=== PATIENT | female | born 1945 | race Caucasian/White ===

== ENCOUNTER 2016-05-03 13:21 | Outpatient (CLI) | payer MEDICARE ==
--- OUTSIDE RECORDS SUMMARY | 2016-05-02 05:49 | XMS REPORT | Continuity of Care Document ---
Author Author [facility] Organization [facility] Address Unknown Phone Unavailable Care Team Providers Care Bench Machine Operator Name Role Phone LAURENT HOYOS MD PCP Insurance Providers Payer Name Policy Number Subscriber Name Relationship Wps Medicare [id number] [employer] 18 Self / Same As Patient Blue Cross [facility] Supp [id number] [employer] 18 Self / Same As Patient Advance Directives Directive Response Recorded Date/Time Advance Directives No 06/06/14 9:50am Organ Donor No 05/27/14 5:22pm Problems Medical Problems Problem Onset Date Status Laceration of leg, left Unknown Active Medications Medication Dose Route Sig Days/Qty Instructions Order Date Discontinued Date Status Calcium/Vitamin D 1 Each PO DAILY 11/22/11 Active [Estradiol] 05/27/14 Active Cephalexin Monohydrate (Keflex) 1 Each PO THREE TIMES A DAY 15 Qty 08/06 Active Social History Social History Problem Response Recorded Date/Time Alcohol Use Denies Use 06/06/2014 9:50am Recreational Drug Use No 06/06/2014 9:50am Recent Foreign Travel No 06/06/2014 9:44am Hospital Discharge Instructions No hospital discharge instructions. Plan of Care No plan of care. Functional Status No functional status results. Allergies, Adverse Reactions, Alerts Allergen Type Severity Reaction Status Last Updated Meperidine HCl Allergy Active 11/22/11 neomycin sulfate Allergy Active 11/22/11 Bacitracin Zinc Allergy Active 11/22/11 polymyxin B sulfate Allergy Active 11/22/11 hydrocortisone ([id number]) Allergy Active 11/22/11 neomycin ([id number]) Allergy Active 11/22/11 bacitracin (G721755531) Allergy Active 11/22/11 gramicidin D (O683282975) Allergy Active 11/22/11 benzalkonium chloride (K003256364) Allergy Active 11/22/11 Polymyxin B Allergy Active 11/22/11 Immunizations Name Given Type Date of Influenza Vaccine 12/23/13 Historical Tdap 05/27/14 Administered Vital Signs Acute Vital Signs Vital Response Date/Time Temperature (Fahrenheit) 97.9 degrees F (97.6 - 99.5) Temperature (Calculated Celsius) 36.63465 degrees C (36.4 - 37.5) Temperature Source Temporal Pulse Rate (adult) 88 bpm (60 - 90) Respiratory Rate 20 bpm (12 - 24) O2 Sat by Pulse Oximetry 99 % (88 - 100) Blood Pressure 126/88 mm Hg Pain Pain Intensity 0 Height (Feet) 4 feet Height (Inches) 11 inches Height (Calculated Centimeters) 149.523856 cm Weight (Pounds) 99 pounds Weight (Calculated Grams) 50245.645 gm Weight (Calculated Kilograms) 44.505294 kilograms Calculated BMI 19.99 Results No known relevant diagnostic tests, laboratory data and/or discharge summary. Procedures No known history of procedures. Encounters Encounter Location Date/Time Departed Emergency Room Via [facility] 06/06/14 9:46am Departed Emergency Room Via [facility] 05/27/14 5:18pm Recent Diagnosis
[~2016-05-03] VITALS: Ht 149.9 cm; Wt 48.5 kg
[~2016-05-03 13:21] MED LIST: ATOR10TA66 PO; CALC-793 PO; CEPH500C PO; CETI10CA PO; ESTR0.5T3 PO; ESTRADIOL; MELO15TA39 PO
--- OUTSIDE RECORDS SUMMARY | 2016-05-03 13:24 | XMS REPORT | Continuity of Care Document ---
Author Author [facility] Organization [facility] Address Unknown Phone Unavailable Care Team Providers Care Oil Dispatcher Name Role Phone LAURENT HOYOS MD PCP Insurance Providers Payer Name Policy Number Subscriber Name Relationship Wps Medicare [id number] Bel[employer]is Kc 18 Self / Same As Patient Blue Cross [facility] Supp [id number] [employer]c 18 Self / Same As [...] polymyxin B sulfate Allergy Active 11/22/11 hydrocortisone ([id number]) Allergy Active 11/22/11 neomycin ([id number]) Allergy Active 11/22/11 bacitracin (Q164586364) Allergy Active 11/22/11 gramicidin D (J381410995) Allergy Active 11/22/11 benzalkonium chloride (Z312983063) Allergy Active 11/22/11 Polymyxin B Allergy Active 11/22/11 Immunizations Name Given Type Date of Influenza Vaccine 12/23/13 Historical Tdap 05/27/14 Administered Vital Signs Acute Vital Signs Vital Response Date/Time Temperature (Fahrenheit) 97.9 degrees F (97.6 - 99.5) Temperature (Calculated Celsius) 36.39504 degrees C (36.4 - 37.5) Temperature Source Temporal Pulse Rate (adult) 88 bpm (60 - 90) Respiratory Rate 20 bpm (12 - 24) O2 Sat by Pulse Oximetry 99 % (88 - 100) Blood Pressure 126/88 mm Hg Pain Pain Intensity 0 Height (Feet) 4 feet Height (Inches) 11 inches Height (Calculated Centimeters) 149.666819 cm Weight (Pounds) 99 pounds Weight (Calculated Grams) 52376.645 gm Weight (Calculated Kilograms) 44.890141 kilograms Calculated BMI 19.99 Results No known relevant diagnostic tests, laboratory data and/or discharge summary. Procedures No known history of procedures. Encounters Encounter Location Date/Time Departed Emergency Room Via [facility] 06/06/14 9:46am Departed Emergency Room Via [facility] 05/27/14 5:18pm Recent Diagnosis
== END 2016-05-03 13:31 ==
LOC: PREOP 13:21
PROVIDERS: ATTEND Internal Medicine
DX: Z01.818 Encounter for other preprocedural examination (principal); Z12.11 Encounter for screening for malignant neoplasm of colon

== ENCOUNTER 2016-05-04 07:16 | Day surgery (SDC) | payer MEDICARE ==
[~2016-05-04] VITALS: Ht 149.9 cm; Wt 48.5 kg
--- OUTSIDE RECORDS SUMMARY | 2016-05-04 07:19 | XMS REPORT | Continuity of Care Document ---
Author Author [facility] Organization [facility] Address Unknown Phone Unavailable Care Team Providers Care Bookmobile Librarian Name Role Phone LAURENT HOYOS MD PCP Insurance Providers Payer Name Policy Number Subscriber Name Relationship Wps Medicare [id number] [employer]is [employer]c 18 Self / Same As Patient Blue Cross [facility] Supp [id number] Bel[employer]is [employer]c 18 Self / Same As [...] polymyxin B sulfate Allergy Active 11/22/11 hydrocortisone ([id number]) Allergy Active 11/22/11 neomycin (O897786682) Allergy Active 11/22/11 bacitracin (U472263321) Allergy Active 11/22/11 gramicidin D (A079213250) Allergy Active 11/22/11 benzalkonium chloride (W333342740) Allergy Active 11/22/11 Polymyxin B Allergy Active 11/22/11 Immunizations Name Given Type Date of Influenza Vaccine 12/23/13 Historical Tdap 05/27/14 Administered Vital Signs Acute Vital Signs Vital Response Date/Time Temperature (Fahrenheit) 97.9 degrees F (97.6 - 99.5) Temperature (Calculated Celsius) 36.54754 degrees C (36.4 - 37.5) Temperature Source Temporal Pulse Rate (adult) 88 bpm (60 - 90) Respiratory Rate 20 bpm (12 - 24) O2 Sat by Pulse Oximetry 99 % (88 - 100) Blood Pressure 126/88 mm Hg Pain Pain Intensity 0 Height (Feet) 4 feet Height (Inches) 11 inches Height (Calculated Centimeters) 149.865469 cm Weight (Pounds) 99 pounds Weight (Calculated Grams) 77298.645 gm Weight (Calculated Kilograms) 44.393969 kilograms Calculated BMI 19.99 Results No known relevant diagnostic tests, laboratory data and/or discharge summary. Procedures No known history of procedures. Encounters Encounter Location Date/Time Departed Emergency Room Via [facility] 06/06/14 9:46am Departed Emergency Room Via [facility] 05/27/14 5:18pm Recent Diagnosis
--- NOTE | 2016-05-04 07:20 | HISTORY AND PHYSICAL ---
DICTATING PHYSICIAN: Dr. Cortez DATE OF ADMISSION: 05/04/2016 Mrs. Garnica is a 70-year-old white female referred by Dr. Nolen for screening colonoscopy. She is deemed to be at higher than average risk as she has a personal past history of colon polyps and there is a family history of colon cancer. Index case was her brother who was diagnosed with colon cancer in his 70s. She also reports her mother was diagnosed with breast cancer at the age of 72. She was first noted to have a pedunculated adenomatous dysplastic 8 mm colon polyp removed from sigmoid colon in 1995, I believe her first colonoscopy. She had a repeat colonoscopy several years later that revealed no evidence for polyps and to my knowledge and hers, she has not had subsequent colonoscopy since 2005, at which time no evidence for neoplasia was noted. She reports that she has felt well. She has noted no blood in her stool. She denies bowel habit change. She does take MiraLAX on a regular albeit not daily basis for constipation. She denies any abdominal distention. There have been no medication changes and she has had no recent surgery. PAST MEDICAL HISTORY: 1. Significant for osteoarthritis. 2. History of some anxiety in the past. 3. She reports that a history of multiple sclerosis 30 years ago, but has had no flares in many years and has not required treatment. PAST SURGICAL HISTORY: 1. Significant for cholecystectomy performed in 2008. 2. She underwent hysterectomy for benign reasons in 2013. Has at least one ovary left. She has been on estrogen placement therapy. FAMILY HISTORY: As noted above. She has also had 2 aunts with breast cancer diagnosed in their 60s. 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 PHYSICAL EXAMINATION: Reveals a pleasant white female, appears to be in no acute distress. She has a normal weight of 107.8 pounds. Blood pressure 134/80. HEENT EXAMINATION: Unremarkable, oral cavity reveals a Mallampati class II configuration. Pharynx reveals no evidence for erythema. NECK: Reveals no JVD, adenopathy, bruits or thyroid abnormality to palpation. CHEST: Clear. CV: Reveals a regular rate and rhythm without murmur, S3 or S4. ABDOMEN: Soft, supple without masses, organomegaly or tenderness. EXTREMITIES: Reveal no cyanosis, clubbing, or edema. Electronic medical record was reviewed. MEDICATIONS: 1. Include: Fish oil 1 to 2 tablets daily. 2. Zyrtec 5 mg daily. 3. 81 mg aspirin daily. 4. Meloxicam 15 mg daily. 5. Cyclobenzaprine 5 mg b.i.d. 6. Estradiol 0.5 mg per vagina weekly. ASSESSMENT: The patient was set-up for screening colonoscopy on May 04. Prep instructions were given with split dose Colyte and questions were answered. Electronic medical record reviewing 40 minutes of my care time was spent with another 10 to 15 minutes of staff time in setting up colonoscopy and going over prep instructions. I thank you for the referral of this pleasant lady. Sincerely, Roger Cortez The patient was instructed to hold aspirin for one week prior to her procedure and meloxicam 48 hours prior to undergoing colonoscopy written instructions to aid in compliance. Job ID: [id number] Dictated Date: 04/26/2016 06:57:00 Program Proposals Coordinator Date: 04/26/2016 10:29:29/antonio
--- OUTSIDE RECORDS SUMMARY | 2016-05-04 07:20 | XMS REPORT | Continuity of Care Document ---
Author Author [facility] Organization [facility] Address Unknown Phone Unavailable Care Team Providers Care Feltmaker And Weigher Name Role Phone LAURENT HOYOS MD PCP Insurance Providers Payer Name Policy Number Subscriber Name Relationship Wps Medicare [id number] Bel[employer]is Kc 18 Self / Same As Patient Blue Cross [facility] Supp [id number] Bel[employer]is Kc 18 Self / Same As [...] polymyxin B sulfate Allergy Active 11/22/11 hydrocortisone ([id number]) Allergy Active 11/22/11 neomycin (I776475134) Allergy Active 11/22/11 bacitracin (N849755483) Allergy Active 11/22/11 gramicidin D (S491965207) Allergy Active 11/22/11 benzalkonium chloride (C083717389) Allergy Active 11/22/11 Polymyxin B Allergy Active 11/22/11 Immunizations Name Given Type Date of Influenza Vaccine 12/23/13 Historical Tdap 05/27/14 Administered Vital Signs Acute Vital Signs Vital Response Date/Time Temperature (Fahrenheit) 97.9 degrees F (97.6 - 99.5) Temperature (Calculated Celsius) 36.18322 degrees C (36.4 - 37.5) Temperature Source Temporal Pulse Rate (adult) 88 bpm (60 - 90) Respiratory Rate 20 bpm (12 - 24) O2 Sat by Pulse Oximetry 99 % (88 - 100) Blood Pressure 126/88 mm Hg Pain Pain Intensity 0 Height (Feet) 4 feet Height (Inches) 11 inches Height (Calculated Centimeters) 149.669967 cm Weight (Pounds) 99 pounds Weight (Calculated Grams) 43757.645 gm Weight (Calculated Kilograms) 44.070535 kilograms Calculated BMI 19.99 Results No known relevant diagnostic tests, laboratory data and/or discharge summary. Procedures No known history of procedures. Encounters Encounter Location Date/Time Departed Emergency Room Via [facility] 06/06/14 9:46am Departed Emergency Room Via [facility] 05/27/14 5:18pm Recent Diagnosis
[2016-05-04] MEDS ORDERED: 1/2 NS IV SOLUTION 1,000 ML IV STA (07:42)
[2016-05-04] MEDS ORDERED: 1/2 NS IV SOLUTION 1,000 ML IV ONE (07:44)
[2016-05-04] MEDS ORDERED: LIDOCAINE JELLY 2% (XYLOCAINE) 5 ML TUBE MM PRN (07:45)
[2016-05-04] MEDS ORDERED: FLUMAZENIL (ROMAZICON) 0.1 MG/ML 5 ML VIAL INJ PRN (07:45)
[2016-05-04] MEDS ORDERED: NALOXONE 0.4 MG/ML 1 ML (NARCAN) VIAL IVP PRN (07:45)
--- NOTE | 2016-05-04 07:56 | Pre-Op Note & Conscious Sedat ---
Pre-Operative Progress Note H&P Reviewed The H&P was reviewed, patient examined and no changes noted. Date H&P Reviewed: May 04, 2016 Time H&P Reviewed: 07:56 Conscious Sedation Pre-Proced ASA Class: 2 Airway Mallampati Classification: ([place] appropriate class) I. II. III, IV Lungs Heart ASA score ASA 1: a normal healthy patient ASA 2: a patient with a mild systemic disease (mid diabetes, controlled hypertension, obesity ASA 3: a patient with a severe systemic disease that limits activity (angina , COPD, prior Myocardial infarction) ASA 4: a patient with an incapacitating disease that is a constant threat to life (CHF, renal failure) ASA 5: a moribund patient not expected to survive 24 hrs. (ruptured aneurysm) ASA 6: a declared brain patient whose organs are being harvested. For emergent operations, add the letter E after the classification Grade 2 Sedation Plan: Analgesia, Amnesia, Plan communicated to team members, Discussed options with patient/fam, Discussed risks with patient/fam Note The patient is an appropriate candidate to undergo the planned procedure, sedation, and anesthesia. The patient immediately re-assessed prior to indication. BIANCA DEAL MD May 04, 2016 07:56
[2016-05-04 08:01] VITALS: BP 134/93
[2016-05-04] MEDS ORDERED: LIDOCAINE JELLY 2% (XYLOCAINE) 5 ML TUBE ONE (08:34)
[2016-05-04] MEDS ORDERED: fentaNYL INJECTION 100 MCG/2 ML AMP ONE ×2 (08:34→08:57)
[2016-05-04] MEDS ORDERED: MIDAZOLAM 2 MG/2 ML (VERSED) VIAL ONE ×2 (08:34)
[2016-05-04] MEDS: fentaNYL INJECTION 100 MCG/2 ML AMP IVP PRN ×4 (08:40→08:59)
[2016-05-04] MEDS: MIDAZOLAM 2 MG/2 ML (VERSED) VIAL IVP PRN ×2 (08:49→08:58)
[2016-05-04 09:45] VITALS: BP 117/72
[2016-05-04 10:04] VITALS: BP 126/66
[2016-05-04 10:57] VITALS: BP 126/66
--- NOTE | 2016-05-06 12:39 | PROCEDURE REPORT ---
PROCEDURE PHYSICIAN: BIANCA DEAL DATE OF PROCEDURE: 05/04/2016 INDICATION FOR THE PROCEDURE: Screening colonoscopy. PROCEDURE: The patient was placed in the left lateral decubitus position. Prior to undergoing colonoscopy, digital rectal evaluation was performed. Anal sphincter tone was normal and the perianal reflex was intact. The patient was concerned that she may have a hemorrhoid as she notices a prominent area. She did have a prominent perianal skin fold and there were no evidence for internal or external hemorrhoids and she was reassured. Anal sphincter tone was normal and the perianal reflex is intact. No abnormalities were noted to digital inspection of the anal canal or distal rectal vault other than an anterior rectocele. There was no evidence for pocketing of stool. The colonoscope was then inserted into the rectum and under direct visualization, advanced to cecum. The cecum was identified by identification of the ileocecal valve and cecal strap. Photographic documentation was obtained. A careful inspection was made as the colonoscope was withdrawn. The quality of prep was good. FINDINGS: There is no evidence for internal or external hemorrhoids. The rectum, sigmoid colon, descending colon, transverse colon, ascending colon and cecum were unremarkable. The patient was reassured by today's findings. As there is a positive family history for colon cancer, index case being her father diagnosed in his 70s, I would advocate consideration for repeat screening colonoscopy in 5 years if this patient's health remains good. I thank you for the referral of this pleasant lady. Sincerely, Bianca Deal MD Job ID: [id number] Dictated Date: 05/04/2016 19:23:55 Animal Cytologist Date: 05/06/2016 12:33:41 / antonio MCCLELLAN
== END 2016-05-04 10:15 | disposition home or self-care (01) ==
LOC: ENDO 07:16
PROVIDERS: ATTEND Internal Medicine
DX: Z12.11 Encounter for screening for malignant neoplasm of colon (principal); Z80.0 Family history of malignant neoplasm of digestive organs

== ENCOUNTER → 2016-05-08 | Outpatient (CLI) | payer MEDICARE ==
[~2016-05-08] VITALS: Ht 149.9 cm; Wt 45.8 kg
[~2016-05-08] MED LIST changes: +NS IV 1000 ML 1,000 ML IV SCH; +ONDANSETRON 4 MG/2 ML (SDV) Z0FRAN IVP ONE
--- OUTSIDE RECORDS SUMMARY | 2016-05-08 11:19 | XMS REPORT | Continuity of Care Document ---
Author Author [facility] Organization [facility] Address Unknown Phone Unavailable Care Team Providers Care Television Engineering Teacher Name Role Phone LAURENT HOYOS MD PCP Insurance Providers Payer Name Policy Number Subscriber Name Relationship Wps Medicare [id number] Belkis Kc 18 Self / Same As Patient Blue Cross [facility] Supp [id number] Belkis Kc 18 Self / Same As [...] polymyxin B sulfate Allergy Active 11/22/11 hydrocortisone ([id number]) Allergy Active 11/22/11 neomycin (Y807595171) Allergy Active 11/22/11 bacitracin (Y117081793) Allergy Active 11/22/11 gramicidin D (W770645593) Allergy Active 11/22/11 benzalkonium chloride (S601349679) Allergy Active 11/22/11 Polymyxin B Allergy Active 11/22/11 Immunizations Name Given Type Date of Influenza Vaccine 12/23/13 Historical Tdap 05/27/14 Administered Vital Signs Acute Vital Signs Vital Response Date/Time Temperature (Fahrenheit) 97.9 degrees F (97.6 - 99.5) Temperature (Calculated Celsius) 36.56352 degrees C (36.4 - 37.5) Temperature Source Temporal Pulse Rate (adult) 88 bpm (60 - 90) Respiratory Rate 20 bpm (12 - 24) O2 Sat by Pulse Oximetry 99 % (88 - 100) Blood Pressure 126/88 mm Hg Pain Pain Intensity 0 Height (Feet) 4 feet Height (Inches) 11 inches Height (Calculated Centimeters) 149.928327 cm Weight (Pounds) 99 pounds Weight (Calculated Grams) 77937.645 gm Weight (Calculated Kilograms) 44.477161 kilograms Calculated BMI 19.99 Results No known relevant diagnostic tests, laboratory data and/or discharge summary. Procedures No known history of procedures. Encounters Encounter Location Date/Time Departed Emergency Room Via [facility] 06/06/14 9:46am Departed Emergency Room Via [facility] 05/27/14 5:18pm Recent Diagnosis
--- NOTE | 2016-05-08 11:47 | Diagnostic Imaging Report ---
INDICATION: Vomiting. Patient is 4 days post colonoscopy. FINDINGS: There were no findings suggestive of free air in this supine radiograph. Bowel gas pattern unremarkable. No abnormal small or large bowel air/distention nor pathological fecal loading. There are clips in the subhepatic space. No suspicious calcifications. IMPRESSION: Unremarkable abdominal radiograph. Dictated by: Dictated on workstation # [id number]
[2016-05-08 12:14] LABS: MEAN PLATELET VOLUME 9.5 FL (7.4-10.4); RED BLOOD COUNT 4.64 10^6/uL (4.35-5.85); RED CELL DISTRIBUTION WIDTH 12.7 % (10.0-14.5)
[2016-05-08 12:33] LABS: ALANINE AMINOTRANSFERASE 21 U/L (0-55); ALBUMIN 4.4 G/DL (3.2-4.5); ANION GAP 14 MMOL/L (5-14); ASPARTATE AMINO TRANSFERASE 30 U/L (5-34); BILIRUBIN,TOTAL 0.8 MG/DL (0.1-1.0); BLOOD UREA NITROGEN 17 MG/DL (7-18); BUN/CREATININE RATIO 22; CALCIUM 9.3 MG/DL (8.5-10.1); CARBON DIOXIDE 22 MMOL/L (21-32); CHLORIDE 105 MMOL/L (98-107); CREATININE SERUM 0.79 MG/DL (0.60-1.30); GFR ESTIMATED > 60; GLUCOSE 97 MG/DL (70-105); POTASSIUM 3.3 MMOL/L (3.6-5.0); SODIUM 141 MMOL/L (135-145)
[2016-05-08 13:15] VITALS: BP 137/87
== END ==
LOC: SDC 11:14
PROVIDERS: ATTEND Nurse Practitioner Family
DX: E86.0 Dehydration (principal); R10.84 Generalized abdominal pain; R10.31 Right lower quadrant pain; R10.32 Left lower quadrant pain; R10.12 Left upper quadrant pain
CPT/HCPCS: 36415; 74000; 80053; 85027; 96360; 96374

== ENCOUNTER → 2016-05-08 | Outpatient (CLI) | payer MEDICARE ==
[~2016-05-08] MED LIST changes: -NS IV 1000 ML 1,000 ML IV SCH; -ONDANSETRON 4 MG/2 ML (SDV) Z0FRAN IVP ONE
--- OUTSIDE RECORDS SUMMARY | 2016-05-08 09:58 | XMS REPORT | Continuity of Care Document ---
Author Author [facility] Organization [facility] Address Unknown Phone Unavailable Care Team Providers Care Clinical Nursing Director Name Role Phone LAURENT HOYOS MD PCP Insurance Providers Payer Name Policy Number Subscriber Name Relationship Wps Medicare [id number] Belkis Kc 18 Self / Same As Patient Blue Cross [facility] Supp [id number] Belkis Kc 18 Self / Same As [...] polymyxin B sulfate Allergy Active 11/22/11 hydrocortisone ([id number]) Allergy Active 11/22/11 neomycin (W278178738) Allergy Active 11/22/11 bacitracin (L276444681) Allergy Active 11/22/11 gramicidin D (T396815175) Allergy Active 11/22/11 benzalkonium chloride (Y816189964) Allergy Active 11/22/11 Polymyxin B Allergy Active 11/22/11 Immunizations Name Given Type Date of Influenza Vaccine 12/23/13 Historical Tdap 05/27/14 Administered Vital Signs Acute Vital Signs Vital Response Date/Time Temperature (Fahrenheit) 97.9 degrees F (97.6 - 99.5) Temperature (Calculated Celsius) 36.65262 degrees C (36.4 - 37.5) Temperature Source Temporal Pulse Rate (adult) 88 bpm (60 - 90) Respiratory Rate 20 bpm (12 - 24) O2 Sat by Pulse Oximetry 99 % (88 - 100) Blood Pressure 126/88 mm Hg Pain Pain Intensity 0 Height (Feet) 4 feet Height (Inches) 11 inches Height (Calculated Centimeters) 149.983488 cm Weight (Pounds) 99 pounds Weight (Calculated Grams) 50445.645 gm Weight (Calculated Kilograms) 44.313760 kilograms Calculated BMI 19.99 Results No known relevant diagnostic tests, laboratory data and/or discharge summary. Procedures No known history of procedures. Encounters Encounter Location Date/Time Departed Emergency Room Via [facility] 06/06/14 9:46am Departed Emergency Room Via [facility] 05/27/14 5:18pm Recent Diagnosis
--- NOTE | 2016-05-08 18:25 | Diagnostic Imaging Report ---
Bilateral screening mammogram The current study was also evaluated with a Computer Aided Detection (CAD) system. INDICATION: Screening. No current complaints stated on the questionnaire. COMPARISON: 11/30/2013. FINDINGS: The breasts are composed of heterogeneously dense parenchyma which may decrease mammographic sensitivity. There are medial left breast and central right breast benign-appearing calcifications. Allowing for technique and positional differences, no suspicious change is seen. IMPRESSION: No significant change. ACR BI-RADS Category 2: Benign findings. Result letter will be mailed to the patient. Note: At least 10% of breast cancer is not imaged by mammography. Dictated by: Dictated on workstation # [id number]
== END ==
LOC: RAD 09:54
PROVIDERS: ATTEND Family Medicine
DX: Z12.31 Encounter for screening mammogram for malignant neoplasm of breast (principal)
CPT/HCPCS: 77067

== ENCOUNTER → 2019-02-25 | Outpatient (CLI) | payer MEDICARE ==
--- NOTE | 2019-02-25 11:11 | Diagnostic Imaging Report ---
INDICATION: Right foot pain, hurts anteriorly x1 month. No known injury.. TECHNIQUE: 3 views of the right foot CORRELATION STUDY: None FINDINGS: The osseous structures of the foot are intact. Joint spaces are maintained. Alignment anatomic. Soft tissues appearing unremarkable. IMPRESSION: 1. Unremarkable examination right foot. Dictated by: Dictated on workstation # [id number]
== END ==
LOC: RAD 10:43
PROVIDERS: ATTEND Nurse Practitioner Family
DX: M79.671 Pain in right foot (principal)
CPT/HCPCS: 73630

== ENCOUNTER → 2022-05-03 | Outpatient (CLI) | payer MEDICARE ==
[~2022-05-03] MED LIST changes: +GADOTERATE 0.5 MMOL/ML (CLARISCAN) 15 ML VIAL IV ONE
--- NOTE | 2022-05-03 11:26 | Diagnostic Imaging Report ---
Clinical indication: Patient's daughter states that the patient seems to be confused during stressful times. Exam: MRI of the brain performed without and with 8 cc of Clariscan IV contrast. Sequences include axial DWI, ADC map, coronal gradient echo, axial FLAIR, axial T1, axial T2, axial T1 post IV contrast whole brain, coronal T1 fat-sat post IV contrast whole brain, and sagittal T1 fat-sat post IV contrast whole brain. Comparison: None. Findings: There is no evidence of acute cerebral infarct, intracranial hemorrhage, or gross mass effect. There is no abnormal IV contrast enhancement. The brain parenchymal volume appears appropriate for patient's age. There are multiple focal, patchy and mildly confluent areas of high T2 signal white matter changes involving white matter and periventricular regions of both cerebral hemispheres. There is normal soto-white matter distinction. There is no significant midline shift or herniation. The [place] of [place] vascular structures show no gross abnormality as visualized. The pituitary gland, sella, and suprasellar regions are unremarkable as visualized. There is no evidence of hydrocephalus. The basal cisterns are unremarkable. The skull, extracranial soft tissue, and orbits are unremarkable. Minimal ethmoid sinus mucosal thickening. Temporal bones show no significant abnormality. IMPRESSION: 1: There is no evidence of acute intracranial process. There is no abnormal IV contrast enhancement. 2: There are age-related brain parenchymal changes including chronic small vessel ischemic disease and leukoaraiosis. Dictated by: Dictated on workstation # [id number]
== END ==
LOC: RAD 08:53
PROVIDERS: ATTEND Family Medicine
DX: I67.82 Cerebral ischemia (principal); I67.81 Acute cerebrovascular insufficiency; F03.90 Unspecified dementia, unspecified severity, without behavioral disturbance, psychotic disturbance, mood disturbance, and anxiety
CPT/HCPCS: 70553